=== PATIENT | female | born 1980 | race Hispanic/Latino ===

== ENCOUNTER 2018-08-12 22:48 | Emergency (ER) | payer BC ==
[2018-08-12 23:33] LABS: BASOPHILS % (AUTO) 0.8 % (0.0-5.0); EOSINOPHILS % (AUTO) 0.4 % (0.0-8.0); HEMATOCRIT 41.1 % (36-48); LYMPHOCYTES % (AUTO) 20.8 % (21.0-51.0); MEAN CORPUSCULAR HEMOGLOBIN 28.9 pg (27.0-33.0); MEAN CORPUSCULAR HGB CONC 34.6 g/dL (32.0-36.0); MEAN CORPUSCULAR VOLUME 83.5 fL (79-99); MONOCYTES % (AUTO) 6.8 % (3.0-13.0); NEUTROPHILS % (AUTO) 71.2 % (40.0-77.0); PLATELET COUNT (AUTO) 282 K/uL (130-400); RED BLOOD CELL COUNT(AUTO) 4.91 MIL/uL (4.00-5.50); RED CELL DISTRIBUTION WIDTH 12.7 % (11.0-15.5); WHITE BLOOD COUNT (AUTO) 10.6 K/uL (4.8-10.8)
[2018-08-12] MEDS ORDERED: CLONIDINE HCL 0.1 MG TABLET ONE (23:35)
[2018-08-12 23:45] LABS: INR 1.04 (0.85-1.15); PARTIAL THROMBOPLASTIN TIME 30.6 SEC (26.3-35.5); PROTHROMBIN TIME 10.9 SEC (9.6-11.6)
[2018-08-12 23:53] LABS: B-TYPE NATRIURETIC PEPTIDE 23 pg/mL (0-100)
[2018-08-13 00:04] LABS: POTASSIUM 3.9 mmol/L (3.5-5.1)
[2018-08-13 00:08] LABS: CREATININE 0.8 mg/dL (0.5-1.5)
[2018-08-13 00:09] LABS: ALBUMIN 4.2 g/dL (3.5-5.0); BILIRUBIN,TOTAL 0.5 mg/dL (0.2-1.0); TOTAL PROTEIN, SERUM 8.3 g/dL (6.0-8.3)
[2018-08-13 00:38] LABS: APPEARANCE,URINE Clear (CLEAR); BILIRUBIN,URINE Small (NEGATIVE); COLOR,URINE Dark Yellow (YELLOW); GLUCOSE, URINE (UA) Negative (NEGATIVE); KETONES,URINE 15 mg/dL (NEGATIVE); LEUKOCYTE ESTERASE ,URINE Moderate (NEGATIVE); NITRATE,URINE Negative (NEGATIVE); OCCULT BLOOD,URINE Large (NEGATIVE); PH,URINE 5.5 (5.0-8.0); PROTEIN,URINE POS 2+ mg/dL (NEGATIVE)
[2018-08-13 00:45] LABS: HCG,QUAL RESULT NEGATIVE (NEGATIVE)
[2018-08-13 00:47] LABS: AMORPHOUS SEDIMENT,UR Many /LPF (None Seen); BACTERIA,URINE Moderate /HPF (None Seen); MUCUS,URINE Many LPF (None Seen); SQUAMOUS EPITHELIAL CELL,UR Many /HPF (0-2)
[2018-08-13 00:51] LABS: AMPHET/METH SCREEN,URINE NEGATIVE (NEGATIVE); BARBITURATE SCREEN, URINE NEGATIVE (NEGATIVE); BENZODIAZEPINES SCREEN,URINE NEGATIVE (NEGATIVE); CANNABINOID SCREEN,URINE NEGATIVE (NEGATIVE); COCAINE SCREEN,URINE NEGATIVE (NEGATIVE); OPIATE SCREEN,URINE NEGATIVE (NEGATIVE); PHENCYCLIDINE SCREEN,URINE NEGATIVE (NEGATIVE)
[2018-08-13] MEDS ORDERED: ONDANSETRON HCL 4 MG/2 ML VIAL ONE (01:09)
[2018-08-13] MEDS ORDERED: PROCHLORPERAZINE EDISYLATE 10 MG/2 ML VIAL ONE (02:47)
[2018-08-13] MEDS ORDERED: CLONIDINE HCL 0.1 MG TABLET ONE (02:47)
[2018-08-13] MEDS ORDERED: DiphenhydrAMINE HCL 50 MG/ML VIAL ONE (02:47)
[2018-08-13] MEDS ORDERED: KETOROLAC TROMETHAMINE 30MG/ML ONE (02:47)
== END 2018-08-13 04:30 | disposition home or self-care (01) ==
LOC: EDH 22:48
DX: I10 Essential (primary) hypertension (principal); R42 Dizziness and giddiness; R51 Headache; Z72.0 Tobacco use
CPT/HCPCS: 36415; 70450; 71045; 80053; 80305; 81001; 81025; 82550; 83880; 84484; 85025; 85610; 85730; 93005; 96374; 96375; 99285; J0780; J1200; J1885; J2405